=== PATIENT | male | born 1960 | race Caucasian/White ===

== ENCOUNTER → 2019-12-19 10:26 | Outpatient (BNVA) | payer BC, SELFPAY | PROVIDERS: Family Provider Internal Medicine; PCP Internal Medicine; Visit Provider Podiatrist Foot & Ankle Surgery | DX: M21.6X1 Other acquired deformities of right foot (principal); M21.6X2 Other acquired deformities of left foot | CPT/HCPCS: 73630 ==

== ENCOUNTER → 2021-01-26 15:22 | Outpatient (BNVA) | payer OTHER, SELFPAY | PROVIDERS: Family Provider Internal Medicine; PCP Internal Medicine; Visit Provider Nurse Practitioner Family | DX: Z20.822 Contact with and (suspected) exposure to COVID-19 (principal); J06.9 Acute upper respiratory infection, unspecified; Z20.828 Contact with and (suspected) exposure to other viral communicable diseases | CPT/HCPCS: 87635 ==

== ENCOUNTER 2021-07-08 07:40 | Outpatient (CLI) | payer OTHER, MEDICAID, SELFPAY ==
--- NOTE | 2021-07-08 08:00 | US_ITS ---
WS: [id number] THYROID ULTRASOUND (TI-RADS CRITERIA) History: Multinodular goiter.. Technique: Ultrasound examination of the thyroid and adjacent soft tissues is performed. FINDINGS: Right lobe: 4.5 cm x 1.9 cm x 2.0 cm. Volume: 9.0 cm3. Normal size and echotexture. There are a few scattered hypoechoic nodules. Most concerning in the sup erior pole contains punctate calcifications. Lymph nodes: Small benign. NODULE: 1 Size: 0.6 x 0.4 x 0.8 cm. Location: Superior pole. Composition: Solid/almost completely solid (2) Echogenicity: Hypoechoic (2) Shape: Not taller than wide (0) Margins: Smooth (0) Echogenic foci: Punctate echogenic foci (3) ACR TI-RADS total points: 7 ACR TI-RADS risk category: TR5 Left lobe: 4.7 cm x 1.4 cm x 1.9 cm. Volume: 6.4 cm3. Normal size and echotexture. No significant or dominant nodules are present. Hypoechoic nodule measur es less than a centimeter in the inferior pole. Lymph nodes: Benign. Isthmus: 0.7 cm. US/US thyroid [id number] Impression: TR5 Recommendation:Subcentimeter nodule with punctate calcifications superior RIGHT thyroid needs continued follow-up. Due to its small size biopsy not necessary at this time. Recommend yearly follow-up evaluation by ultrasound.
== END 2021-07-08 07:41 | disposition home or self-care (01) ==
LOC: RAD 07:45
PROVIDERS: PCP Internal Medicine; Visit Provider Internal Medicine
DX: E04.2 Nontoxic multinodular goiter (principal)
CPT/HCPCS: 76536

== ENCOUNTER → 2022-05-12 09:47 | Outpatient (BNVA) | payer OTHER, MEDICAID, SELFPAY | PROVIDERS: PCP Internal Medicine; Visit Provider Family Medicine | DX: I10 Essential (primary) hypertension (principal); E04.2 Nontoxic multinodular goiter; K21.00 Gastro-esophageal reflux disease with esophagitis, without bleeding; F41.1 Generalized anxiety disorder; K22.70 Barrett's esophagus without dysplasia; F32.0 Major depressive disorder, single episode, mild | CPT/HCPCS: 80053; 80061; 82607; 84439; 84443; 85025 ==

== ENCOUNTER 2022-07-21 06:21 | Outpatient (CLI) | payer MEDICAID, SELFPAY ==
--- NOTE | 2022-07-21 06:30 | US_ITS ---
WS: [id number] ULTRASOUND THYROID TECHNIQUE: Ultrasound of the thyroid. CLINICAL INFORMATION: goiter COMPARISON: Ultrasound 07/08/21 FINDINGS: Thyroid: Right and left thyroid lobes are normal in size and echotexture. Bilateral thyroid nodules s table compared to previous. Right thyroid lobe: 4.6 cm x 1.7 cm x 2.4 cm Bilateral hypoechoic thyroid nodules. Superior pole nodule again seen with punctate calcifications re ern[place] subcentimeter in size. A few tiny incidental colloid cysts. NODULE: 1 Size: 5.6 x 5.5 x 7.3 mm Location: Superior pole. Composition: Solid/almost completely solid (2) Echogenicity: Hypoechoic (2) Shape: Not taller than wide (0) Margins: Smooth (0) Echogenic foci: Punctate echogenic foci (3) ACR TI-RADS total points: 7 ACR TI-RADS risk category: TR5 Left thyroid lobe: 4.9 cm x 1.7 cm x 2.1 cm. Predominantly cystic nodule inferior thyroid measuring 12 x 11 x 9 mm similar to previous. Small amou nt of internal debris. Isthmus: 0.4 mm. Cervical lymphadenopathy: None. US/US thyroid [id number] IMPRESSION: 1. Thyroid is normal in size and echotexture. 2. Stable subcentimeter superior pole RIGHT thyroid nodule with punctate calc ifications. Recommend continued surveillance with 12 month follow-up. 3. No other significant changes.
== END 2022-07-21 06:22 | disposition home or self-care (01) ==
LOC: RAD 06:22
PROVIDERS: PCP Internal Medicine; Visit Provider Family Medicine
DX: E04.2 Nontoxic multinodular goiter (principal)
CPT/HCPCS: 76536

== ENCOUNTER → 2023-06-19 15:32 | Outpatient (BNVA) | payer OTHER, MEDICAID, SELFPAY | PROVIDERS: PCP Family Medicine; Visit Provider Family Medicine | DX: I10 Essential (primary) hypertension (principal) | CPT/HCPCS: 80053; 80061; 84439; 84443; 85025 ==

== ENCOUNTER 2023-07-03 06:37 | Outpatient (CLI) | payer OTHER, MEDICAID, SELFPAY ==
--- NOTE | 2023-07-03 07:00 | US_ITS ---
WS: [id number] THYROID ULTRASOUND HISTORY: thyroid nodule COMPARISON: 07/21/2022, 07/08/2021 Right lobe: 1.6 cm x 1.5 cm x 4.4 cm (w x ap x l). Volume: 5.4 cm3. Normal sized thyroid. Reidentified is a well-circumscribed predominately solid nodule in the superior pole with a few echogenic foci. Nodule measures 5 x 5 x 8 mm and is unchanged in size. Left lobe: 1.7 cm x 1.8 cm x 4.1 cm (w x ap x l). Volume: 6.6 cm3. Hypoechoic nodule in the mid LEFT thyroid measures 9 x 7 x 11 mm. This is a very hypoechoic nodule. N o echogenic foci or calcifications. No increase in size since the prior study. Isthmus: 0.4 cm. IMPRESSION: 1. Bilateral thyroid nodules have not changed in size since 07/08/2021. Both of these nodules do not fit criteria for ultrasound-guided FNA as per the TI-RADS criteria. Recommend continued yearly ultras ound evaluation.
== END 2023-07-03 06:38 | disposition home or self-care (01) ==
LOC: RAD 06:37
PROVIDERS: PCP Family Medicine; Visit Provider Family Medicine
DX: E04.2 Nontoxic multinodular goiter (principal)
CPT/HCPCS: 76536

== ENCOUNTER → 2023-07-10 12:41 | Outpatient (BNVA) | payer OTHER, MEDICAID, SELFPAY | PROVIDERS: PCP Family Medicine; Visit Provider Podiatrist Foot & Ankle Surgery | DX: M79.672 Pain in left foot (principal); M79.671 Pain in right foot; M21.612 Bunion of left foot | CPT/HCPCS: 73630 ==

== ENCOUNTER → 2023-11-27 11:18 | Outpatient (BNVA) | payer OTHER, SELFPAY | PROVIDERS: PCP Family Medicine; Visit Provider Family Medicine | DX: N18.31 Chronic kidney disease, stage 3a | CPT/HCPCS: 80053 ==

== ENCOUNTER → 2024-05-27 11:25 | Outpatient (BNVA) | payer OTHER, SELFPAY | PROVIDERS: PCP Family Medicine; Visit Provider Family Medicine | DX: E04.2 Nontoxic multinodular goiter (principal); I10 Essential (primary) hypertension | CPT/HCPCS: 80053; 80061; 84439; 84443; 85025 ==

== ENCOUNTER → 2024-12-24 08:58 | Outpatient (BNVA) | payer BC, SELFPAY | PROVIDERS: PCP Family Medicine; Visit Provider Podiatrist Foot & Ankle Surgery | DX: M79.672 Pain in left foot (principal); Q66.71 Congenital pes cavus, right foot; Q66.72 Congenital pes cavus, left foot; M62.462 Contracture of muscle, left lower leg | CPT/HCPCS: 73630 ==